=== PATIENT | male | born 1955 | race Asian ===

== ENCOUNTER 2017-12-09 08:58 | Outpatient (CLI) | payer BC ==
--- NOTE | 2017-12-09 11:09 | CT ---
CT LOW DOSE PULMONARY LUNG SCAN PERFORMED WITHOUT CONTRAST ENHANCEMENT: History: Smoker of 35+ years. Quit 10 years ago. FINDINGS: The lungs are clear of any infiltrative process. I do not appreciate any emphysematous type change or bronchiectasis. No pleural effusion. Some minimal parenchymal linear change is seen within the lingu la, most compatible with some scar. There are post op sternotomy changes noted. The visualized liver parenchyma is unremarkable. No evidence of any definite pulmonary nodules. IMPRESSION: Lung rad category 1 - negative. Annual screening exam is recommended. POS: [facility]
== END 2017-12-09 08:59 | disposition home or self-care (01) ==
LOC: CT 08:58
PROVIDERS: ATTEND Family Medicine
DX: Z87.891 Personal history of nicotine dependence (principal)
CPT/HCPCS: G0297

== ENCOUNTER 2019-01-17 08:59 | Outpatient (CLI) | payer BC ==
--- NOTE | 2019-01-17 09:49 | CT ---
EXAM: CT chest without contrast per low-dose cancer screening protocol HISTORY: History of smoking and nicotine dependence COMPARISON: 12/09/2017 TECHNIQUE: Multiple contiguous axial images were obtained in a CT of the chest without contrast per l ow-dose cancer screening protocol. Sagittal and coronal reformats were performed. FINDINGS: Pulmonary nodules: No suspicious pulmonary nodules are seen. No focal infiltrates are seen. Scarring is seen in the lingula. Pleural space: No pneumothorax or pleural effusion are seen. Heart: The heart is normal in size. Calcification in the coronary arteries. Mediastinum: No hilar or mediastinal lymphadenopathy appreciated on this limited noncontrast examinat ion. Bones: Degenerative changes in the spine. The patient is status post sternotomy for CABG.. Visualized subdiaphragmatic structures: Unremarkable. IMPRESSION: Lung RADS category 1-negative.
== END 2019-01-17 09:00 | disposition home or self-care (01) ==
LOC: CT 08:59
PROVIDERS: ATTEND Family Medicine
DX: Z87.891 Personal history of nicotine dependence (principal)
CPT/HCPCS: G0297

== ENCOUNTER 2019-12-11 15:05 | Outpatient (CLI) | payer BC ==
--- NOTE | 2019-12-11 15:24 | RAD ---
Exam: XR Ankle Rt 3 View STANDARD HISTORY: Right ankle swelling. History of prior injury. Intermittent right ankle pain. COMPARISON: None FINDINGS: No acute fracture, dislocation, or other acute osseous abnormality is identified. There is a corticat ed osseous density seen just anterior to the tibiotalar joint which may be related to a remote avulsion injury. A plantar calcaneal enthesophyte is identified. Subcutaneous soft tissue swelling is seen at the lateral aspect of the ankle. There is suggestion of a small joint effusion. IMPRESSION: 1. Subcutaneous soft tissue swelling without evidence of an acute osseous abnormality. 2. Small joint effusion.
== END 2019-12-11 15:06 | disposition home or self-care (01) ==
LOC: BICRAD 15:05
PROVIDERS: ATTEND Family Medicine
DX: M25.471 Effusion, right ankle (principal); M79.89 Other specified soft tissue disorders
CPT/HCPCS: 36415; 80053; 80061; 81001; 83036; 84443; 84550; 85025; G0103

== ENCOUNTER 2022-02-26 17:30 | Outpatient (CLI) | payer MEDICARE | END 2022-02-26 17:31 | disposition home or self-care (01) | LOC: SLEEPLAB 17:30 | PROVIDERS: ATTEND Family Medicine | DX: G47.33 Obstructive sleep apnea (adult) (pediatric) (principal); R53.83 Other fatigue; I25.10 Atherosclerotic heart disease of native coronary artery without angina pectoris; I10 Essential (primary) hypertension | CPT/HCPCS: 95800 ==